=== PATIENT | male | born 1980 ===

== ENCOUNTER 2018-06-22 18:25 | Emergency (ER) | payer OTHER ==
[2018-06-22 18:56] VITALS: BP 133/83
--- NOTE | 2018-06-22 19:36 | UC ---
Skin Complaint HPI - HPI Summary HPI Summary: Per training engineer"Day 3 of "red lump" under left thigh, warm to touch, per pt." -here w/ friend Misty -denies fevers/chills/aches -no drainage. no streaks - History of Current Complaint Chief Complaint: UCSkin Time Seen by Provider: 06/22/18 19:15 Stated Complaint: UPPER LEG SKIN CONCERN,LEFT Pain Intensity: 2 - Allergy/Home Medications Allergies/Adverse Reactions: Allergies Allergy/AdvReac Type Severity Reaction Status Date / Time lactose Allergy Abdominal Verified 06/22/18 18:49 Pain TOMATO SAUCE Allergy Heartburn Uncoded 07/24/15 12:05 PMH/Surg Hx/FS Hx/Imm Hx Previously Healthy: Yes Other History Of: Negative For: HIV - Surgical History Surgical History: Yes Surgery Procedure, Year, and Place: 2012 LEFT TEAR DUCT SURGERY, [place]; myotomy lower esophagus, fundiplication 07/2014 - Family History Known Family History: Positive: None - Social History Alcohol Use: Rare Substance Use Type: None Smoking Status (MU): Never Smoked Tobacco Have You Smoked in the Last Year: No Review of Systems All Other Systems Reviewed And Are Negative: Yes Constitutional: Positive: Negative Skin: Positive: Other - red spot left leg Eyes: Positive: Negative ENT: Positive: Negative Respiratory: Positive: Negative Cardiovascular: Positive: Negative Gastrointestinal: Positive: Negative Genitourinary: Positive: Negative Motor: Positive: Negative Neurovascular: Positive: Negative Musculoskeletal: Positive: Negative Neurological: Positive: Negative Psychological: Positive: Negative Is Patient Immunocompromised?: No Physical Exam Triage Information Reviewed: Yes Appearance: Well-Appearing, No Pain Distress, Well-Nourished Vital Signs: Initial Vital Signs Temp 97.8 F 06/22/18 18:51 Pulse 86 06/22/18 18:51 Resp 16 06/22/18 18:51 BP 133/83 06/22/18 18:51 Pulse Ox 100 06/22/18 18:51 Vital Signs Reviewed: Yes ENT Exam: Normal Neck exam: Normal Respiratory Exam: Normal Respiratory: Positive: Lungs clear, Normal breath sounds Cardiovascular Exam: Normal Cardiovascular: Positive: RRR Abdomen Description: Positive: Nontender, Soft Neurological Exam: Normal Psychological Exam: Normal Skin: Positive: Rashes - left posterior thigh w/ 1/2 dollar sized erythematous almost flat lesion. tender. no significant elevation. no purulent d/c. not fluctuant. no streaks. slightly warm to touch Course/Dx - Course Course Of Treatment: No indication for I&D at this time. not fluctuant. no d/c or streaks. -hoepfully it will resolve w/ abx. should f/u if worsens, fevers/ chills drainage etc. -bactrim x 14 d. probiotic - Differential Diagnoses - Skin Complaint Differential Diagnoses: Abscess, Cellulitis - Diagnoses Provider Diagnosis: Abscess Discharge - Sign-Out/Discharge Documenting (check all that apply): Patient Departure All imaging exams completed and their final reports reviewed: No Studies - Discharge Plan Condition: Stable Disposition: HOME Prescriptions: Sulfamethox/Trimethoprim DS* [Bactrim DS 800/160 TAB*] 1 tab PO BID #28 tab Patient Education Materials: Abscess (ED) Referrals: Carroll Hathaway MD [Primary Care Provider] - 5 Days Additional Instructions: Make sure to take a probiotic daily while on antibiotics to help prevent a potential complication of antibiotic use called c diff. Some well known brands that can be found OTC are [employer], [employer] and [employer]ia. Make sure to complete the entire prescription unless advised otherwise by your health care provider. -You should go to the ER if you develop any fevers, chills or body aches. You can follow up here, your PCP or ER if the abscess gets worse. - Billing Disposition and Condition Condition: STABLE Disposition: Home
== END 2018-06-22 19:47 | disposition home or self-care (01) ==
LOC: UCCORT 18:25
DX: L02.416 Cutaneous abscess of left lower limb (principal)
CPT/HCPCS: 99212; G0463